=== PATIENT | male | born 1945 | race Caucasian/White ===

== ENCOUNTER 2023-03-04 03:24 | Emergency (ER) | payer OTHER ==
--- OUTSIDE RECORDS SUMMARY | 2023-03-04 03:26 | XMS REPORT | Continuity of Care Document ---
:1945 Author Organization [facility] t Address [address] [place] [address] Care Team Providers Name Role Phone David FOREMAN, Maynor Castellanos Primary Care Physician [phone] Problems This patient has no known problems. Allergies, Adverse Reactions, Alerts Allergy Allergy Status Severity Reaction(s) Onset Inactive Treating Comm ents Source Name Type Date Date Clinician Sulfamet Propensi Active Difficult [facility] adverse 00[facility]: swallowin [facility] oprim reaction 00 g Center s Social History Social Habit Start Date Stop Date Quantity Comments Source Alcohol intake 2017-01-30 2017-01-[address] [facility] 00:[facility]:00 00:00:00 non-drinker of Medical Ce nter alcohol (finding) Tobacco use and 2017-01-26 2017-01-[address] [facility] exposure 00:00:00 00:00:00 [facility] Sex Assigned At [address] [facility] Smoking Status Start Date Stop Date Source Never sm[facility] Medications Ordered Filled Start Stop Current Ordering Indication Dosage Frequency Signature Comments Components Source Medication Medication Date Date Medication? Clinician (SIG) Name Name metoprolol Yes 12.5mg Q.5D Take 12.[address] [facility] (TOPROL-XL) 4-27 mg by [facility] 100 MG 24 13:33: mouth 2 Medic al hr tablet 28 (two) Center times daily. aspirin 81 Yes 81mg QD Take [address] MG chewable 4-27 by mouth Luke s tablet 13:33: daily. Medical 28 Center nitroglycer Yes .3mg Place 0.[address] in 4-27 mg under [facility] (NITROSTAT) 13:33: the tongue Medical 0.3 MG SL 28 every 5 Center tablet (five) minutes as needed for Chest pain Put 1 pill under tongue every 5min as needed for chest pain.No more than 3 doses in 15min.Call 911 if pain is unrelieved 5min after 1st dose . multivitami Yes 1{tbl} QD Take [address] n with 4-27 tablet by [employer] minerals 13:33: mouth Medical tablet 28 daily. Center omega-3 Yes 2g Q.5D Take [address] [facility] fatty 4-27 by mouth 2 [facility] acids-fish 13:33: (two) Medica l oil 28 times Center 340-1,000 daily. mg Cap per capsule glucosamine Yes 1{tbl} Q.[id number] Take [address] [address] -chondroiti 4-27 [id number] tablet by [facility] n 500-400 13:33: 3D mouth 3 Medic al mg tablet 28 (three) Center times daily. coenzyme Yes 100mg QD Take [address] Q10 100 mg 4-27 mg by [facility] capsule 13:33: mouth Medical 28 daily. Center cholecalcif Yes 1000U QD Take 1,[address] [facility] jose 4-27 Units by [employer] (VITAMIN 13:33: mouth Medical D3) 400 28 daily. Center unit Tab tablet lisinopril Yes 2.5mg QD Take 2.[address] (PRINIVIL,Z 4-27 mg by [facility] ESTRIL) 2.5 13:33: mouth Medic al MG tablet 28 daily. Center simvastatin Yes 40mg QD Take [address] [facility] (ZOCOR) 40 4-27 by mouth Lukes MG tablet 13:33: nightly. Medi margarito 28 Center metoprolol Yes 12.5mg Q.5D Take 12.[address] (TOPROL-XL) 4-27 mg by [facility] 100 MG 24 13:33: mouth 2 Medic al hr tablet 28 (two) Center times daily. aspirin 81 Yes 81mg QD Take [address] MG chewable 4-27 by mouth Luke s tablet 13:33: daily. Medical 28 Center nitroglycer Yes .3mg Place 0.[address] in 4-27 mg under [facility]ukes (NITROSTAT) 13:33: the tongue Medical 0.3 MG SL 28 every 5 Center tablet (five) minutes as needed for Chest pain Put 1 pill under tongue every 5min as needed for chest pain.No more than 3 doses in 15min.Call 911 if pain is unrelieved 5min after 1st dose . multivitami Yes 1{tbl} QD Take [address] n with 4-27 tablet by [facility] minerals 13:33: mouth Medical tablet 28 daily. From[place] omega-3 Yes 2g Q.5D Take [address] fatty 4-27 by mouth 2 [facility] acids-fish 13:33: (two) Medica l oil 28 times Center 340-1,000 daily. mg Cap per capsule glucosamine Yes 1{tbl} Q.[id number] Take [address] -chondroiti 4-27 [id number] tablet by [facility]ukes n 500-400 13:33: 3D mouth 3 Medic al mg tablet 28 (three) Center times daily. coenzyme Yes 100mg QD Take [address] Q10 100 mg 4-27 mg by [facility]ukes capsule 13:33: mouth Medical 28 daily. [place] cholecalcif Yes 1000U QD Take 1,[address] jose 4-27 Units by Lukes (VITAMIN 13:33: mouth Medical D3) 400 28 daily. Center unit Tab tablet lisinopril Yes 2.5mg QD Take 2.[address] (PRINIVIL,Z 4-27 mg by [facility] ESTRIL) 2.5 13:33: mouth Medic al MG tablet 28 daily. [place] simvastatin Yes 40mg QD Take [address] [address] (ZOCOR) 40 4-27 by mouth Lukes MG tablet 13:33: nightly. Medi margarito 28 [place] multivitami Yes 1{tbl} QD Take [address] n with 4-27 tablet by [facility] minerals 13:33: mouth Medical tablet 28 daily. [place] metoprolol Yes 12.5mg Q.5D Take 12.[address] (TOPROL-XL) 4-27 mg by [facility] 100 MG 24 13:33: mouth 2 Medic al hr tablet 28 (two) Center times daily. aspirin 81 Yes 81mg QD Take [address] MG chewable 4-27 by mouth Luke s tablet 13:33: daily. Medical 28 Center nitroglycer Yes .3mg Place 0.[address] in 4-27 mg under Lukes (NITROSTAT) 13:33: the tongue Medical 0.3 MG SL 28 every 5 Center tablet (five) minutes as needed for Chest pain Put 1 pill under tongue every 5min as needed for chest pain.No more than 3 doses in 15min.Call 911 if pain is unrelieved 5min after 1st dose . multivitami Yes 1{tbl} QD Take [address] n with 4-27 tablet by [employer] minerals 13:33: mouth Medical tablet 28 daily. Center omega-3 Yes 2g Q.5D Take [address] fatty 4-27 by mouth 2 [facility]ukes acids-fish 13:33: (two) Medica l oil 28 times Center 340-1,000 daily. mg Cap per capsule glucosamine Yes 1{tbl} Q.[id number] Take [address] -chondroiti 4-27 [id number] tablet by [employer] n 500-400 13:33: 3D mouth 3 Medic al mg tablet 28 (three) Center times daily. coenzyme Yes 100mg QD Take [address] Q10 100 mg 4-27 mg by Lukes capsule 13:33: mouth Medical 28 daily. [place] cholecalcif Yes 1000U QD Take 1,[address] jose 4-27 Units by [employer] (VITAMIN 13:33: mouth Medical D3) 400 28 daily. Center unit Tab tablet lisinopril Yes 2.5mg QD Take 2.[address] (PRINIVIL,Z 4-27 mg by [employer] ESTRIL) 2.5 13:33: mouth Medic al MG tablet 28 daily. [place] simvastatin Yes 40mg QD Take [address] (ZOCOR) 40 4-27 by mouth Lukes MG tablet 13:33: nightly. Medi margarito 28 Center omega-3 Yes 2g Q.5D Take [address] fatty 4-27 by mouth 2 [facility] acids-fish 13:33: (two) Medica l oil 28 times Center 340-1,000 daily. mg Cap per capsule metoprolol Yes 12.5mg Q.5D Take 12.[address] (TOPROL-XL) 4-27 mg by [facility]ukes 100 MG 24 13:33: mouth 2 Medic al hr tablet 28 (two) Center times daily. aspirin 81 Yes 81mg QD Take [address] MG chewable 4-27 by mouth Luke s tablet 13:33: daily. Medical 28 Center nitroglycer Yes .3mg Place 0.[address] in 4-27 mg under [facility]ukes (NITROSTAT) 13:33: the tongue Medical 0.3 MG SL 28 every 5 Center tablet (five) minutes as needed for Chest pain Put 1 pill under tongue every 5min as needed for chest pain.No more than 3 doses in 15min.Call 911 if pain is unrelieved 5min after 1st dose . nitroglycer Yes .3mg Place 0.[address] in 4-27 mg under [facility]ukes (NITROSTAT) 13:33: the tongue Medical 0.3 MG SL 28 every 5 Center tablet (five) minutes as needed for Chest pain Put 1 pill under tongue every 5min as needed for chest pain.No more than 3 doses in 15min.Call 911 if pain is unrelieved 5min after 1st dose . glucosamine Yes 1{tbl} Q.[id number] Take [address] -chondroiti 4-27 [id number] tablet by [facility]ukes n 500-400 13:33: 3D mouth 3 Medic al mg tablet 28 (three) Center times daily. multivitami Yes 1{tbl} QD Take [address] n with 4-27 tablet by [facility]ukes minerals 13:33: mouth Medical tablet 28 daily. Center omega-3 Yes 2g Q.5D Take [address] fatty 4-27 by mouth 2 [facility] acids-fish 13:33: (two) Medica l oil 28 times Center 340-1,000 daily. mg Cap per capsule glucosamine Yes 1{tbl} Q.[id number] Take [address] -chondroiti 4-27 [id number] tablet by [facility]ukes n 500-400 13:33: 3D mouth 3 Medic al mg tablet 28 (three) Center times daily. coenzyme 2017-0 Yes 100mg QD Take [address] Q10 100 mg 4-27 mg by Lukes capsule 13:33: mouth Medical 28 daily. Center cholecalcif 2017-0 Yes 1000U QD Take 1,[address] jose 4-27 Units by Lukes (VITAMIN 13:33: mouth Medical D3) 400 28 daily. Center unit Tab tablet lisinopril 2017-0 Yes 2.5mg QD Take 2.[address] (PRINIVIL,Z 4-27 mg by [facility]ukes ESTRIL) 2.5 13:33: mouth Medic al MG tablet 28 daily. Center simvastatin 2017-0 Yes 40mg QD Take [address] (ZOCOR) 40 4-27 by mouth Lukes MG tablet 13:33: nightly. Medi margarito 28 Center metoprolol 2017-0 Yes 12.5mg Q.5D Take 12.[address] (TOPROL-XL) 4-27 mg by [facility]ukes 100 MG 24 13:33: mouth 2 Medic al hr tablet 28 (two) Center times daily. aspirin 81 2017- Yes 81mg QD Take [address] MG chewable 4-27 by mouth Luke s tablet 13:33: daily. Medical 28 Center coenzyme 2017-0 Yes 100mg QD Take [address] Q10 100 mg 4-27 mg by [facility]ukes capsule 13:33: mouth Medical 28 daily. Center cholecalcif 20170 Yes 1000U QD Take 1,[address] jose 4-27 Units by Lukes (VITAMIN 13:33: mouth Medical D3) 400 28 daily. Center unit Tab tablet lisinopril 2017-0 Yes 2.5mg QD Take 2.[address] (PRINIVIL,Z 4-27 mg by [facility]ukes ESTRIL) 2.5 13:33: mouth Medic al MG tablet 28 daily. Center simvastatin 2017-0 Yes 40mg QD Take [address] (ZOCOR) 40 4-27 by mouth Lukes MG tablet 13:33: nightly. Medi margarito 28 Center Procedures This patient has no known procedures. Results This patient has no known results.
[2023-03-04] MEDS ORDERED: LIDOCAINE 1% MPF 30 ML VIAL ONE (04:00)
[2023-03-04] MEDS ORDERED: TETANUS & DIPHTHERIA TOX,ADULT 0.5 ML VIAL ONE (04:00)
--- NOTE | 2023-03-04 06:37 | ER ---
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 There was blood on the floor on scene. lac seems controlled with applied pressure en route. Ebola Screen: No symptoms or risks identified at this time. Initial Sepsis Screen: Does the patient meet any 2 criteria? No. Patient's initial sepsis screen is negative. Does the patient have a suspected source of infection? No. Patient's initial sepsis screen is negative. Risk Assessment: Do you want to hurt yourself or someone else? Patient reports no desire to harm self or others. Onset of symptoms was March 04, 2023. 03:27 Method Of Arrival: EMS: [facility] aa9 03:27 Acuity: JAREK 3 aa9 08:17 Coronavirus screen: At this time, the client does not indicate any symptoms associated ko1 with coronavirus-19. Triage Assessment: 03:35 General: Appears comfortable, well groomed, Behavior is calm, cooperative. Pain: aa9 Complains of pain in posterior head, L hip tenderness Pain currently is 2 out of 10 on a pain scale. Neuro: Level of Consciousness is awake, alert, obeys commands, Oriented to person, situation, Drafter Electrical are equal bilaterally Moves all extremities. Speech is normal, Facial symmetry appears normal. Cardiovascular: Patient's skin is warm and dry. Respiratory: Airway is patent Respiratory effort is even, unlabored. : No signs and/or symptoms were reported regarding the genitourinary system. Derm: Wound noted scalp Wound is approximately 2 in lac. Historical: - Allergies: 03:30 No Known Allergies; aa9 - Home Meds: 03:30 Vitamin D Oral [Active]; simvastatin 40 mg Oral tablet every evening [Active]; aa9 rivastigmine 13.3 mg/24 hour transdermal patch, transdermal 24 hours daily [Active]; metoprolol tartrate 25 mg Oral tablet 2 times per day [Active]; lisinopril 2.5 mg Oral tablet daily [Active]; - PMHx: 03:30 Hypertension; Myocardial infarction; Alzheimer's disease; Coronary atherosclerosis; aa9 - Immunization history:: Adult Immunizations unknown. - Social history:: Smoking status: Patient denies any tobacco usage or history of. - Family history:: not pertinent. Screenin:07 Abuse screen: Denies threats or abuse. Denies injuries from another. Nutritional aa9 screening: No deficits noted. Tuberculosis screening: No symptoms or risk factors identified. 08:15 [facility] ED Fall Risk Assessment (Adult) History of falling in the last 3 months, ko1 including since admission Yes- single mechanical fall (1 pt) Confusion or Disorientation Yes (5 pts) Intoxicated or Sedated No (0 pts) Impaired Gait No (0 pts) Mobility Assist Device Used No (0 pt) Altered Elimination No (0 pt) Score/Fall Risk Level 3 or more points = High Risk Oriented to surroundings, Maintained a safe environment, Educated pt \\T\\ family on fall prevention, incl call for assistance when getting out of bed, Assessed \\T\\ reinforced patient's understanding of fall precautions, Provided non-skid footwear, Hourly rounding (assess needs \\T\\ fall precautionary measures) done, Used ambulatory aids as needed (educated on \\T\\ assisted with), Used gait belt as appropriate Implemented a Fall Risk Plan of Care, Apply high fall risk patient identification: yellow non skid footwear/ fall signage, Remained w/in arm's length of patient and in sight while toileting, Offered frequent toileting (1:1 observation), Remained with patient while ambulating. Assessment: 06:07 Reassessment: Patient appears in no apparent distress at this time. Patient and/or aa9 family updated on plan of care and expected duration. Pain level reassessed. Patient is alert, oriented x 3, equal unlabored respirations, skin warm/dry/pink. 06:49 Reassessment: Patient appears in no apparent distress at this time. Patient and/or aa9 family updated on plan of care and expected duration. Pain level reassessed. Patient is alert, oriented x 3, equal unlabored respirations, skin warm/dry/pink. called [facility], provided report to receiving nurse. 07:01 Reassessment: [phone] Kimberli Root, . aa9 07:12 Reassessment: Attempted to call patients to take him back to [facility], went ko1 straight to [facility], left msg. 08:15 Reassessment: spoke with Alexi at [facility], they will send transport over to take ko1 patient back to their facility. Vital Signs: 03:27 BP 148 / 88; Pulse 64; Resp 15; Pulse Ox 97% on R/A; Weight 81.74 kg (R); Height 5 ft. aa9 9 in. ; Pain 2/10; 05:00 BP 142 / 99; Pulse 72; Resp 20 S; Pulse Ox 95% on R/A; aa9 06:07 BP 145 / 85; Pulse 63; Resp 17 S; Pulse Ox 100% on R/A; aa9 03:27 Body Mass Index 26.09 (81.74 kg, 177 cm) aa9 03:27 Pain Scale: Adult aa9 ED Course: 03:27 Patient arrived in ED. aa9 03:30 Triage completed. aa9 03:36 Arm band placed on. aa9 03:36 Patient has correct armband on for positive identification. Bed in low position. Call aa9 light in reach. Side rails up X2. Client placed on continuous cardiac and pulse oximetry monitoring. NIBP monitoring applied. 03:42 Anthony Bhandari MD is Attending Physician. sp4 03:43 Yamila Tovar, RN is Primary Nurse. aa9 04:24 CT Head Brain wo Cont In Process Unspecified. EDMS 06:47 Dressings: Kerlix X 2; scalp non-adherent dressing x 1 scalp. aa9 08:15 Assist provider with laceration repair. Patient did not have IV access during this [facility] emergency room visit. Administered Medications: 03:58 Drug: Tetanus-Diphtheria Toxoid IM Adult 0.5 ml {Practice Consultant: [employer]. Exp: aa9 03/14/2024. Lot #: [id number]. } Route: IM; Site: left deltoid; 06:29 Drug: Lidocaine Infiltration (1 %) 30 ml {Note: Elisabet FOREMAN administered .} Volume: 20 aa9 ml; Route: Infiltration; Medication: 03:59 Vaccine Information Statement (VIS) provided today. Questions and/or concerns aa9 addressed. VIS edition date: May 10, 2021. Outcome: 06:37 Discharge ordered by . magdiel 08:15 [facility] to [facility]. Transfer form completed. ko1 08:15 Condition: stable 08:15 Discharge instructions given to penitentiary, Instructed on discharge instructions, follow up and referral plans. wound care, Demonstrated understanding of instructions, follow-up care, wound care. 08:36 Patient left the ED. ko1 Signatures: Dispatcher [employer] EDMS Yamila Tovar RN RN aa9 Francisca Flores RN RN ko1 Anthony Bhandari MD MD sp4
--- NOTE | 2023-03-04 06:37 | EDPHYS ---
Physician Documentation [facility] Name: Sudeep Coello Age: 77 yrs Sex: Male : 1945 Arrival Date: 03/04/2023 Time: 03:24 Bed 14 Private MD: ED Physician Anthony Bhandari HPI: 03/04 03:42 This 77 yrs old Male presents to ER via EMS with complaints of laceration . sp4 06:06 77-year-old male presents from shelter with acute fall and his shelter. sp4 Patient was found on the floor in a puddle of blood. Patient apparently fell backwards striking the back of his head. Patient has approximately 5 cm laceration to upper posterior scalp. No other injury reported. Patient has moderate dementia and is not able to provide history or review of systems.. Historical: - Allergies: 03:30 No Known Allergies; aa9 - Home Meds: 03:30 Vitamin D Oral [Active]; simvastatin 40 mg Oral tablet every evening [Active]; aa9 rivastigmine 13.3 mg/24 hour transdermal patch, transdermal 24 hours daily [Active]; metoprolol tartrate 25 mg Oral tablet 2 times per day [Active]; lisinopril 2.5 mg Oral tablet daily [Active]; - PMHx: 03:30 Hypertension; Myocardial infarction; Alzheimer's disease; Coronary atherosclerosis; aa9 - Immunization history:: Adult Immunizations unknown. - Social history:: Smoking status: Patient denies any tobacco usage or history of. - Family history:: not pertinent. ROS: 06:06 Constitutional: Negative for fever, chills, and weight loss. sp4 06:06 Unable to obtain ROS due to baseline dementia. 06:08 Skin: Positive for injury and posterior scalp laceration. sp4 Exam: 06:08 Constitutional: This is a well developed, well nourished patient who is awake, alert, sp4 frail elderly male, no distress, moderate dementia on exam Head/Face: Normocephalic, posterior scalp contusion with posterior preoperative scalp 5 cm laceration diagonal orientation Eyes: Pupils equal round and reactive to light, extra-ocular motions intact. Lids and lashes normal. Conjunctiva and sclera are not injected. Cornea within normal limits. Periorbital areas with no swelling, redness, or edema. ENT: Nares patent. No nasal discharge, no septal abnormalities noted. Tympanic membranes are normal and external auditory canals are clear. Oropharynx with no redness, swelling, or masses, exudates, or evidence of obstruction, uvula midline. Mucous membranes moist. Neck: Trachea midline, no thyromegaly or masses palpated, and no cervical lymphadenopathy. Supple, full range of motion without nuchal rigidity, or vertebral point tenderness. No Meningismus. Chest/axilla: Normal chest wall appearance and motion. Nontender with no deformity. No lesions are appreciated. Cardiovascular: Regular rate and rhythm with a normal S1 and S2. No gallops, murmurs, or rubs. Normal PMI, no JVD. No pulse deficits. Respiratory: Lungs have equal breath sounds bilaterally, clear to auscultation and percussion. No rales, rhonchi or wheezes noted. No increased work of breathing, no retractions or nasal flaring. Abdomen/GI: Soft, non-tender, with normal bowel sounds. No distension or tympany. No guarding or rebound. No evidence of tenderness throughout. Back: No spinal tenderness. No costovertebral tenderness. Male : Normal genitalia with no discharge or lesions. Skin: Warm, dry with normal turgor. Normal color with no rashes, no lesions, and no evidence of cellulitis. MS/ Extremity: Pulses equal, no cyanosis. Neurovascular intact. Full, normal range of motion. Neuro: Awake and alert, GCS 15, oriented to person, place, time, and situation. Cranial nerves II-XII grossly intact. Motor strength 5/5 in all extremities. Sensory grossly intact. Psych: Awake, alert, with orientation to person, place and time. Behavior, mood, and affect are within normal limits Vital Signs: 03:27 BP 148 / 88; Pulse 64; Resp 15; Pulse Ox 97% on R/A; Weight 81.74 kg (R); Height 5 ft. aa9 9 in. ; Pain 2/10; 05:00 BP 142 / 99; Pulse 72; Resp 20 S; Pulse Ox 95% on R/A; aa9 06:07 BP 145 / 85; Pulse 63; Resp 17 S; Pulse Ox 100% on R/A; aa9 03:27 Body Mass Index 26.09 (81.74 kg, 177 cm) aa9 03:27 Pain Scale: Adult aa9 Laceration: 06:29 Wound Repair of 5cm ( 2.0in ) subcutaneous laceration to left parietal area. sp4 Irregularly shaped.. Distal neuro/vascular/tendon intact. Anesthesia: Wound infiltrated with 10 mls of 1% lidocaine. Wound prep: Moderate cleansing by me, Copious irrigation. Skin closed with 8 3-0 Silk using simple sutures and sterile technique. Dressed with 4x4's, Kerlix. Patient tolerated well. MDM: 03:49 Patient medically screened. sp4 06:08 Differential Diagnosis Acute fall with posterior head injury scalp laceration . . Data sp4 reviewed: vital signs, nurses notes, radiologic studies, CT scan. ED course: CT head revealed no acute intracranial abnormality. . 06:29 ED course: Laceration repair patient is ready for discharge back to the [place] [address] [facility]. 03/04 03:49 Order name: CT Head Brain wo Cont sp4 03/04 03:50 Order name: Dressing - Wound; Complete Time: 06:29 sp4 03/04 03:50 Order name: Gloves, Sterile; Complete Time: 06:29 sp4 03/04 03:50 Order name: Setup Suture Tray; Complete Time: 06:29 sp4 Administered Medications: 03:58 Drug: Tetanus-Diphtheria Toxoid IM Adult 0.5 ml {Pharmacy Technician Per Diem: [employer]. Exp: aa9 03/14/2024. Lot #: [id number]. } Route: IM; Site: left deltoid; 06:29 Drug: Lidocaine Infiltration (1 %) 30 ml {Note: Elisabet FOREMAN administered .} Volume: 20 aa9 ml; Route: Infiltration; Disposition Summary: 03/04/23 06:37 Discharge Ordered Location: Home sp4 Problem: new sp4 Symptoms: have improved sp4 Condition: Stable sp4 Diagnosis - Laceration without foreign body of scalp sp4 - Acute fall in the shelter, scalp laceration, posterior scalp contusion, closed sp4 head injury Followup: sp4 - With: Private Physician - When: As needed - Reason: Recheck today's complaints Discharge Instructions: - Discharge Summary Sheet sp4 - Laceration Care, Adult, [id number] sp4 Signatures: Dispatcher [facility] Yamila Castellano RN RN aa9 Dev Bhandariy, MD MD sp4
[2023-03-04 09:01] VITALS: BP 145/85; O2SAT 100
--- NOTE | 2023-03-04 13:13 | RAD REPORT ---
EXAM DESCRIPTION: CT - Head Brain Wo Cont - 03/04/2023 6:57 am CLINICAL HISTORY: The patient is 77 years old and is Male; fall acute head injury TECHNIQUE: Axial computed tomography images of the head/brain without intravenous contrast. Sagitt al and coronal reformatted images were created and reviewed. This CT exam was performed using one o r more of the following dose reduction techniques: automated exposure control, adjustment of the mA and/or kV according to patient size, and/or use of iterative reconstruction technique. COMPARISON: No relevant prior studies available. FINDINGS: Brain: Mild nonspecific white matter changes likely related to chronic microvascular isc hemic disease. Mild cerebral atrophy. No hemorrhage. Ventricles: Unremarkable. No ventriculomegaly. Bones/joints: Unremarkable. No acute fracture. Soft tissues: Unremarkable. Sinuses: Unremarkable as visualized. Mastoid air cells: Unremarkable as visualized. No mastoid effusion. IMPRESSION: No acute intracranial abnormality. Electronically signed by: Juaquin Blood MD 03/04/2023 4:43 AM CDT Due to temporary technical issues with the PACS/Fluency reporting system, reports are being signed by the in house radiologist without review as a courtesy to ensure prompt reporting. The interpreting r adiologist is fully responsible for the content of the report.
== END 2023-03-04 08:36 | disposition home or self-care (01) ==
LOC: ER 03:24
PROC: 0HQ0XZZ Repair Scalp Skin, External Approach (ICD-10-PCS; principal; 2023-03-04)
DX: S01.01XA Laceration without foreign body of scalp, initial encounter (principal); I10 Essential (primary) hypertension; G30.9 Alzheimer's disease, unspecified; F02.80 Dementia in other diseases classified elsewhere, unspecified severity, without behavioral disturbance, psychotic disturbance, mood disturbance, and anxiety; Z23 Encounter for immunization
CPT/HCPCS: 70450; 90471; 90714; 99284; J2001